=== PATIENT | female | born 1955 | race Caucasian/White ===

== ENCOUNTER 2017-03-14 14:08 | Emergency (ER) | payer BC ==
[~2017-03-14] VITALS: Ht 154.9 cm; Wt 59.0 kg
[~2017-03-14 14:08] MED LIST: (None)125 MG PO; ADLT ASA LOW81 MG PO; AMLODIPINE10 MG PO; AMOXICILLIN/CL875 MG PO; ANTIVERT25 MG PO; ATORVASTATIN CA10 MG PO; CEPHALEXIN500 MG PO; CIPROFLOXACN500 MG PO; KLOR-CON M2020 MEQ PO; LASIX 40 MG40 MG/TAB PO; LASIX40 MG PO; LIPITOR80 MG PO; LISINOPRIL20 MG PO; LOPRESSOR 550 MG/TAB PO; MEDDOSEPAK PO; MINOCIN100 M1 PO; MULT VITAMIN OR; MULTI VIT PO; NORVASC5 MG PO; PHENERGAN25 MG/TAB PO; PLAVIX75 MG PO; PRILOSEC20 MG/CAP PO; PRILOSEC40 MG PO; ZOFRAN ODT4 MG PO
[2017-03-14] MEDS ORDERED: LOPRESSOR50 M1 PO (15:46)
[2017-03-14] MEDS ORDERED: K-DUR/KLOR-CON20 MEQ PO (15:47)
[2017-03-14] MEDS ORDERED: LASIX 40 MG TAB40 MG PO (15:47)
[2017-03-14] MEDS ORDERED: LISINOPRIL20 M1 PO (15:47)
[2017-03-14 17:10] LABS: INFLUENZA A NONE DETECTED (NONE DETECT); INFLUENZA B NONE DETECTED (NONE DETECT)
[2017-03-14] MEDS ORDERED: ROBITUSSIN AC10 ML PO (17:12)
[2017-03-14] MEDS ORDERED: MEDDOSEPAK PO (17:12)
[2017-03-14] MEDS ORDERED: CEPHALEXIN500 MG PO (17:12)
[2017-03-14 17:35] VITALS: BP 123/78
== END 2017-03-14 17:35 | disposition home or self-care (01) | DRG 192 ==
LOC: ED 14:08
PROVIDERS: Emergency Medicine
DX: J44.1 Chronic obstructive pulmonary disease with (acute) exacerbation (principal); F17.210 Nicotine dependence, cigarettes, uncomplicated; R06.2 Wheezing; R09.81 Nasal congestion

== ENCOUNTER 2020-02-26 15:31 | Emergency (ER) | payer BC ==
[~2020-02-26] VITALS: Ht 154.9 cm; Wt 50.0 kg
[~2020-02-26 15:31] MED LIST changes: +K-DUR/KLOR-CON20 MEQ PO; +LASIX 40 MG TAB40 MG PO; +LISINOPRIL20 M1 PO; +LOPRESSOR50 M1 PO; +ROBITUSSIN AC10 ML PO
[2020-02-26 17:25] VITALS: BP 184/90
== END 2020-02-26 17:57 | disposition home or self-care (01) | DRG 866 ==
LOC: ED 15:31
DX: B34.9 Viral infection, unspecified (principal); I10 Essential (primary) hypertension; I25.10 Atherosclerotic heart disease of native coronary artery without angina pectoris; K21.9 Gastro-esophageal reflux disease without esophagitis; F17.200 Nicotine dependence, unspecified, uncomplicated; I25.2 Old myocardial infarction; Z20.822 Contact with and (suspected) exposure to COVID-19

== ENCOUNTER 2021-03-10 13:40 | Emergency (ER) | payer MEDICARE ==
[~2021-03-10] VITALS: Ht 154.9 cm; Wt 59.0 kg
[2021-03-10 14:23] LABS: HEMOGLOBIN 14.7 g/dl (12.0-16.0); IMMATURE GRANULOCYTES 0.1 % (0.0-5.0); MEAN CELL VOLUME 102.8 fL CALC (80.0-100.0); MEAN CORPUSCULAR HGB 34.3 pG CALC (26.0-32.0); MEAN CORPUSCULAR HGB CONC 33.4 g/dL CAL (32.0-36.0); NEUT# 6.09 thou/uL (2.00-7.15); RED BLOOD COUNT 4.28 mill/uL (4.20-5.60); RED CELL DISTRI WIDTH 13.3 % (11.5-15.5)
[2021-03-10 14:38] LABS: ALBUMIN 3.9 g/dL (3.2-5.0); ALKALINE PHOSPHATASE 113 u/l (38-126); ANION GAP 13 (6-22 (CALC)); BILIRUBIN, TOTAL 0.5 mg/dL (0.0-1.4); BUN 10 mg/dL (8-23); BUN/CREATININE RATIO 13 (12-20 (CALC)); CARBON DIOXIDE 24 mmol/l (22-30); CHLORIDE 108 mmol/l (95-108); CREATININE 0.8 mg/dL (0.5-1.0); GFR > 60 ML/MIN (>=60 (CALC)); GFR FOR AFR.AMER. > 60 ML/MIN (>=60 (CALC)); POTASSIUM 3.1 mmol/l (3.5-5.1); SGOT/AST 84 u/l (9-36); SODIUM 142 mmol/l (137-146); TOTAL PROTEIN 7.1 g/dL (6.3-8.2)
[2021-03-10 14:45] LABS: PROTHROMBIN TIME 10.9 SECONDS (9.0-12.5)
[2021-03-10 15:15] VITALS: BP 173/79
== END 2021-03-10 15:24 | disposition short-term general hospital (02) ==
LOC: ED 13:40
PROVIDERS: Family Medicine
DX: I63.9 Cerebral infarction, unspecified (principal); R29.810 Facial weakness; R47.81 Slurred speech; R13.10 Dysphagia, unspecified; R29.709 NIHSS score 9; I10 Essential (primary) hypertension; I25.10 Atherosclerotic heart disease of native coronary artery without angina pectoris; K21.9 Gastro-esophageal reflux disease without esophagitis; I25.2 Old myocardial infarction; F17.200 Nicotine dependence, unspecified, uncomplicated
CPT/HCPCS: J3101; Q9967